=== PATIENT | male | born 1965 | race Caucasian/White ===

== ENCOUNTER 2024-10-02 18:05 | Inpatient (IN) ==
--- NOTE | 2024-10-02 18:25 | Emergency Department Note ---
History of Present Illness General Chief Complaint: Urinary Symptoms Stated Complaint: UTI, FEVER Time Seen by Provider: 10/02/24 18:13 History of Present Illness Provider Complaint: abdominal pain Onset (ago): 1 day(s) Location: diffuse Severity: moderate Maximum Pain Intensity: 8 Current Pain Intensity: 8 Quality: + stabbing and + sharp Relieved By: + nothing Exacerbated By: + other (Urinating) Context: + recent antibiotic use (Placed on Cipro yesterday by urology) and + recent surgery/procedure (Cystoscopy performed by urology Dr. Lerma 3 days ago); no foreign travel or no possible food poisoning Associated Symptoms: + nausea, + vomiting, + fever (Tmax 102.3 today), + chills and + dysuria; no diarrhea, no hematemesis, no melena, no hematuria, no headache, no chest pain and no breathing difficulty Patient also reports polyuria and urge to urinate Home Medications Medication Instructions Recorded Confirmed Type cyclobenzaprine 10 mg tablet 10 mg PO HS PRN Muscle Spasms 06/18/24 10/02/24 History simvastatin 10 mg tablet 10 mg PO QPM 06/18/24 10/02/24 History meloxicam 15 mg tablet 15 mg PO Q2D 09/02/24 10/02/24 History alfuzosin 10 mg tablet,extended 10 mg PO DAILY #30 tabs 09/03/24 10/02/24 Rx release 24 hr olmesartan 20 mg tablet (Benicar) 20 mg PO QPM #90 tabs 09/26/24 10/02/24 Rx finasteride 5 mg tablet 5 mg PO DAILY #30 tabs 09/30/24 10/02/24 Rx tadalafil 20 mg tablet 20 mg PO DAILY PRN sexual activity 09/30/24 10/02/24 Rx #30 tabs ciprofloxacin HCl 500 mg tablet 500 mg PO BID #14 tabs 10/02/24 10/02/24 Rx (Cipro) Allergies Allergy/AdvReac Type Severity Reaction Status Date / Time adhesive Allergy Intermediate Redness, Verified 09/15/24 10:30 Infection hydrochlorothiazide AdvReac Intermediate Muscle Verified 09/15/24 10:30 Cramping demerol AdvReac Mild "chills" Uncoded 09/15/24 10:30 Past Med/Surg History Problem List (Updated 10/02/24 @ 21:24 by Brian Streeter MD) JOSE (acute kidney injury) (Acute) Urinary tract infection (Acute) Colon cancer screening Dysuria History of renal cell cancer Inflamed seborrheic keratosis Overflow diarrhea (Acute) Skin lesion of face (Acute) Seborrheic keratoses (Acute) Stopped smoking with greater than 40 pack year history (Acute) Nocturia (Acute) Adult general medical exam (Acute) Migraines (Acute) Hyperlipidemia (Acute) Medical History Adverse effect of anesthesia "Slow to wake" as per patient Tinnitus, left ear COPD (chronic obstructive pulmonary disease) "Onset, never diagnosed" as per patient Migraines Hypercholesteremia HTN (hypertension) Hx of renal cell carcinoma 2012 - no chemo/xrt - surgery only Surgical History History of wisdom tooth extraction History of hip replacement, total Left Hx of shoulder surgery Left x3 arthroscopy Hx of appendectomy Hx of cholecystectomy Hx of spinal surgery x5 Lumbar - Hardware present History of nephrectomy, left Family History Grandmother (Paternal) Breast cancer Father Hypertension Prostate cancer GBM (glioblastoma multiforme) Mother Hypertension Pancreatic cancer Diabetes Sister Bladder cancer Grandmother (Maternal) Diabetes Brother Diabetes Denies family history of Ovarian cancer Heart disease Myocardial infarction Colorectal cancer Social History Smoking Status: Current every day smoker Tobacco Type: Cigarettes Age Started Using Tobacco: 14; packs per day: 1; Cigarettes Per Day: 1 1/2 pack; Second Hand Exposure: No; Do You Dip or Chew Tobacco: No; Hx Alcohol Use: Yes Hx Substance Use: No Preferred Language: Azeri Communication Ability: Effective Visual Impairment: Partially Limited Hearing Ability: Normal Child Care Provider Required: No Beliefs That Will Affect Care: None marital status: Current Living Situation: Spouse current occupational status: employed current occupation: [id number] How many Children do You have: 2 Feels Safe at Home: Yes Childhood Exposure to Second-Hand Smoke: Yes Diet: regular caffeine: Yes during the past year weight has: remained stable Dental Care, Regularly: No Physical Activity Frequency: 5-6 Times per Week Seatbelt Use: always Sunscreen Use: No Do you think of yourself as: straight/heterosexual Gender Identity: Male Assistive Devices: Glasses Physical Exam 2 Vital Signs: Vital Signs - 24 hr 10/02/24 18:09 10/02/24 18:13 10/02/24 18:13 Temperature 37.2 C Temperature Source Oral Pulse Rate 113 H Pulse Rate [Right Brachial] 101 H Pulse Rate from Sp O2 Sensor Pulse Rhythm [Righ t Brachial] Regular Pulse Strength [Ri ght Brachial] Normal Respiratory Rate 20 19 Respiratory Effort / Characteristics Non-Labored Non-Labored Respiratory Depth Normal Normal Respiratory Patter n Regular Blood Pressure 117/64 Blood Pressure [Ri ght Arm] 107/78 Blood Pressure Rena n 81 Blood Pressure Rena n [Right Arm] 87 Blood Pressure Pos ition [Right Arm] Lying Pulse Oximetry 95 95 94 Oxygen Delivery Me thod Room Air Room Air Room Air Sepsis Recent Feve r Within 48 Hours No Sepsis New/Unexpla ined Change in Men cierra Status No Sepsis Action Take n by Nursing No Action Required 10/02/24 18:32 10/02/24 18:45 10/02/24 19:00 Temperature Temperature Source Pulse Rate 105 H 98 H Pulse Rate [Right Brachial] Pulse Rate from Sp O2 Sensor 98 H Pulse Rhythm [Righ t Brachial] Pulse Strength [Ri ght Brachial] Respiratory Rate 16 Respiratory Effort / Characteristics Respiratory Depth Respiratory Patter n Blood Pressure 137/76 125/76 Blood Pressure [Ri ght Arm] Blood Pressure Rena n 89 89 Blood Pressure Rena n [Right Arm] Blood Pressure Pos ition [Right Arm] Pulse Oximetry 93 Oxygen Delivery Me thod Sepsis Recent Feve r Within 48 Hours Sepsis New/Unexpla ined Change in Men cierra Status Sepsis Action Take n by Nursing 10/02/24 19:00 10/02/24 19:15 10/02/24 19:30 Temperature Temperature Source Pulse Rate 95 H 96 H 92 H Pulse Rate [Right Brachial] Pulse Rate from Sp O2 Sensor 95 H 97 H 92 H Pulse Rhythm [Righ t Brachial] Pulse Strength [Ri ght Brachial] Respiratory Rate 22 21 20 Respiratory Effort / Characteristics Respiratory Depth Respiratory Patter n Blood Pressure 125/76 116/73 105/65 Blood Pressure [Ri ght Arm] Blood Pressure Rena n 89 81 71 Blood Pressure Rena n [Right Arm] Blood Pressure Pos ition [Right Arm] Pulse Oximetry 93 97 94 Oxygen Delivery Me thod Sepsis Recent Feve r Within 48 Hours Sepsis New/Unexpla ined Change in Men cierra Status Sepsis Action Take n by Nursing 10/02/24 19:45 10/02/24 20:00 10/02/24 20:15 Temperature Temperature Source Pulse Rate 94 H 95 H 90 Pulse Rate [Right Brachial] Pulse Rate from Sp O2 Sensor 85 94 H 90 Pulse Rhythm [Righ t Brachial] Pulse Strength [Ri ght Brachial] Respiratory Rate 20 25 H 16 Respiratory Effort / Characteristics Respiratory Depth Respiratory Patter n Blood Pressure 113/65 116/75 113/66 Blood Pressure [Ri ght Arm] Blood Pressure Rena n 74 88 77 Blood Pressure Rena n [Right Arm] Blood Pressure Pos ition [Right Arm] Pulse Oximetry 95 94 98 Oxygen Delivery Me thod Sepsis Recent Feve r Within 48 Hours Sepsis New/Unexpla ined Change in Men cierra Status Sepsis Action Take n by Nursing 10/02/24 20:26 10/02/24 20:30 10/02/24 21:00 Temperature Temperature Source Pulse Rate 99 H 99 H Pulse Rate [Right Brachial] 101 H Pulse Rate from Sp O2 Sensor 97 H Pulse Rhythm [Righ t Brachial] Regular Pulse Strength [Ri ght Brachial] Normal Respiratory Rate 22 21 Respiratory Effort / Characteristics Non-Labored Respiratory Depth Normal Respiratory Patter n Regular Blood Pressure 132/84 Blood Pressure [Ri ght Arm] 137/90 Blood Pressure Rena n 96 Blood Pressure Rena n [Right Arm] 105 Blood Pressure Pos ition [Right Arm] Lying Pulse Oximetry 95 99 Oxygen Delivery Me thod Room Air Sepsis Recent Feve r Within 48 Hours Sepsis New/Unexpla ined Change in Men cierra Status Sepsis Action Take n by Nursing Physical Exam: Physical Exam GENERAL: oriented to person, place, and time. appears well-developed and well- nourished. She does not appear distressed. HENT: Exam performed. -Head: Normocephalic and atraumatic. -Right Ear: External ear normal. No mastoid erythema -Left Ear: External ear normal. No mastoid erythema -Mouth/Throat: The oropharynx is clear and moist. No trismus in the jaw. No dental abscesses or uvula swelling. No oropharyngeal exudate or tonsillar abscesses. EYES: Conjunctivae and EOM are normal.Right eye exhibits no discharge. Left eye exhibits no discharge. No scleral icterus. NECK: Normal range of motion. Neck supple. No JVD present. No tracheal deviation and normal range of motion present. CV: Normal rate, regular rhythm, normal heart sounds and intact distal pulses. There is no peripheral edema. Palpable radial pulses bue. PULM/CHEST: Effort normal and breath sounds normal. No respiratory distress. No stridor. no wheezes.no rales. -Chest Wall: no tenderness to palpation ABD: The abdomen is soft.no distension. No mass is present. There is no tenderness to palpation of the suprapubic area. There is no rebound, no guarding, no Velasquez's sign and no tenderness at McBurney's point. Rovsig negative MUSC/SKEL: Normal range of motion. There is no peripheral edema, tenderness or deformity. NEURO: Motor and sensation grossly intact. SKIN: Skin is warm and dry. not diaphoretic. PSYCH: normal mood and affect. Behavior is normal. Judgment and thought content normal. Course Course 1812: The patient was evaluated in room C2. A complete history and physical exam was performed Cardiac monitoring: An order was placed for continuous cardiac monitoring. The monitor shows a rate of 110 with sinus tachycardia rhythm interpreted by me 1938: Vital signs stable. Labs show leukocytosis of 22. Lactic acid within normal limits. Procalcitonin is elevated. Urinalysis appears to be infected. Rocephin ordered for the patient. CT of the abdomen pelvis was conducted. I went over the patient's results with on-call urology Dr. Rachel. He states he does not see any abscess or obstruction. Patient's creatinine is elevated at 1.66 up from baseline of 1.4. After discussion with Dr. Rachel and him reviewing the patient's CT scan, we both feel that the patient should be admitted for IV hydration IV antibiotics given his JOSE and UTI. Patient is agreement will be admitted to the medicine team of the [facility]. Administered Medications Discontinued Medications Sodium Chloride (Nss) 1,000 mls @ 999 mls/hr IV .[id number] [facility], [facility]1983 Stop: 10/02/24 19:15 Last Infusion: 10/02/24 19:39 Dose: Infused Documented By: Admin: 10/02/24 18:30 Dose: 999 mls/hr Documented By: SANDRITA Ceftriaxone Sodium (Rocephin) 2,000 mg in 50 mls @ 100 mls/hr IV NOW STA Stop: 10/02/24 19:43 Last Infusion: 10/02/24 20:03 Dose: Infused Documented By: Admin: 10/02/24 19:29 Dose: 100 mls/hr Documented By: SABI Medical Decision Making Medical Records Attestation: I reviewed the patient's medical records. External medical records reviewed. Patient had a recent cystoscopy done on September 29, [address] Lerma. Laboratory Data Attestation: I reviewed the patient's lab results. 10/02/24 18:29 10/02/24 18:29 Lab Results 10/02/24 10/02/24 Range/Units 18:24 18:29 WBC 22.93 H (4.8-10.8) K/ul RBC 5.31 (4.70-6.10) M/uL Hgb 16.4 (14.0-18.0) g/dl Hct 47.3 (42.0-52.0) % MCV 89.1 (80.0-100.0) fL MCH 30.9 (25.0-34.0) pg MCHC 34.7 (32.0-36.0) g/dL RDW Std Deviation 44.0 (36.4-46.3) fL RDW Coeff of Cr 13.5 (11.5-14.5) % Plt Count 171 (130-400) K/uL MPV 10.0 (9.4-12.4) fL Immature Gran % (Auto) 1.0 % Neut % (Auto) 83.5 % Lymph % (Auto) 5.1 % Antelope % (Auto) 10.0 % Eos % (Auto) 0.1 % Baso % (Auto) 0.3 % Neut # (Auto) 19.16 H (1.40-6.50) K/uL Lymph # (Auto) 1.16 L (1.20-3.40) K/uL Antelope # (Auto) 2.30 H (0.11-0.59) K/uL Eos # (Auto) 0.03 (0.00-0.50) K/uL Baso # (Auto) 0.06 (0.00-0.20) K/uL Immature Gran # (Auto) 0.22 H (0.01-0.20) K/uL PT 11.9 (9.0-12.0) Seconds INR 1.1 (0.9-1.1) APTT 30 (21-31) Seconds PTT Ratio 1.1 Sodium 133 L (136-145) mmol/L Potassium 4.6 (3.5-5.1) mmol/L Chloride 102 (98-107) mmol/L Carbon Dioxide 22 (21-32) mmol/L Anion Gap 9 (3-11) BUN 23 (6-23) mg/dl Creatinine 1.66 H (0.6-1.4) mg/dl Est Cr Clr Drug Dosing 62.9 ml/min eGFR 46.90 BUN/Creatinine Ratio 13.9 (10-20) Glucose 123 H (70-99(Fasting)) mg/dl Lactate 1.3 (0.4-2.0) mmol/L Calcium 9.9 (8.6-10.3) mg/dl Magnesium 1.6 L (1.7-2.4) mg/dl Total Bilirubin 1.8 H (0.2-1.0) mg/dl Direct Bilirubin 0.5 H (0-0.2) mg/dl AST 12 L (13-39) U/L ALT 22 (7-52) U/L Alkaline Phosphatase 69 (34-104) U/L Troponin I High Sens 4.4 (0-20) pg/ml Total Protein 7.2 (6.0-8.3) gm/dl Albumin 4.1 (3.4-5.0) gm/dl Procalcitonin 0.73 H (0-0.5) ng/ml Urine Color [place] Urine Appearance Turbid A (Clear) Urine pH 6.5 (4.5-7.5) Ur Specific [place] 1.026 (1.000-1.030) Urine Protein 2+ H (Negative) Urine Glucose (UA) Negative (Negative) Urine Ketones Trace H (Negative) Urine Blood 3+ H (Negative) Urine Nitrite Positive A (Negative) Urine Bilirubin Negative (Negative) Urine Urobilinogen Negative (Negative) Ur Leukocyte Esterase 3+ H (Negative) Urine WBC (Auto) >50 H (0-5) /hpf Urine RBC (Auto) >20 H (0-2) /hpf U Hyaline Cast (Auto) 6-10 H (0-2) /lpf U Epithel Cells (Auto) 0-2 (0-2) /hpf Urine Bacteria (Auto) 3+ H (None Seen) Urine Comment Imaging Data Attestation: I personally reviewed and interpreted this imaging study as follows: My Impression: CT abdomen pelvis: No obstruction or abscess in the renal system. No free air. Radiologist's Impression: Chest X-Ray 10/02/24 18:13 Clinical History: Sepsis Technique: A frontal view of the chest was obtained Findings: There are no confluent pulmonary infiltrates. The heart size is within normal limits. No pleural effusion or pneumothorax is seen. There is no definite pulmonary nodule. No fracture is noted. No foreign body is seen Impression: No active disease Electronically signed by Kamar Joseph 10-02-2024 7:28 PM Abdomen/Pelvis CT 10/02/24 18:14 EXAMINATION: Abdomen and pelvis CT without CLINICAL HISTORY: Fever dysuria PRIORS: 09/20/2024 without report TECHNIQUE: Contiguous axial images were obtained through the abdomen and pelvis without the use of intravenous contrast. Sagittal and coronal reformations are supplied. FINDINGS: Mild hypoventilatory changes at the lung bases. Evaluation of solid organs is limited without the use of intravenous contrast. Fatty infiltration of the liver and hepatomegaly present. Spleen is 13 cm on the coronal images, upper limits of normal. Gallbladder surgically absent. The pancreas, adrenals, aorta and IVC are morphologically unremarkable. Stomach under distended with no inflammatory change. The left kidney is surgically absent. No adenopathy in the left retroperitoneum. Surgical clips are noted. The right kidney shows a low-attenuation round to oval lesion anteriorly measuring 3.2 cm with nonspecific perinephric stranding. No hydronephrosis, hydroureter or obstructing calculus. Beam hardening artifact from lumbar spine hardware diminishes image quality. Moderate atherosclerotic disease of the abdominal aorta. Urinary bladder is under distended. Allowing for beam hardening artifact, mild perivesicular inflammatory change noted, appearing in the interval. Focus of gas is present within the urinary bladder dependently, image 322, series 3. No pelvic sidewall adenopathy or free fluid. Moderate sigmoid colon diverticulosis with no inflammatory change on the current examination. No extraluminal gas or drainable fluid collection. Moderate amount of formed stool in the colon. Bowels unremarkable. Prostate is moderately enlarged. No free fluid in the pelvis. In bone windows, advanced degenerative change of the lumbar spine with postsurgical change noted. IMPRESSION: 1. Allowing for underdistention, circumferential urinary bladder wall thickening and new perivesicular inflammatory change is present, favoring Acute Cystitis given the stated clinical history. A single focus of gas is present in the urinary bladder lumen. Please correlate if there is been recent instrumentation which may have introduced gas. Otherwise, a gas producing organism could be considered if appropriate. 2. Prostamegaly. 3. Diverticulosis with no pericolonic inflammatory change on the current exam. 4. Spleen size is upper limits of normal. 5. Surgical absence of the left kidney. ACT 112: Positive. There are findings on this examination that require communication between the performing entity and the patient following Patient Test Result Information Act ([place] ACT 112) guidelines. Electronically signed by Zulma Koch 10-02-2024 7:39 PM ECG Data Attestation: I personally reviewed and interpreted this ECG as follows: Rate (beats per minute): 101 Rhythm: sinus tachycardia Findings: no ST depression, no ST elevation or no prolonged QT MDM Narrative 1813: The patient was evaluated in room C2. A complete history and physical exam was performed Cardiac monitoring: An order was placed for continuous cardiac monitoring. The monitor shows a rate of 110 with sinus tachycardia rhythm interpreted by me 1938: Vital signs stable. Labs show leukocytosis of 22. Lactic acid within normal limits. Procalcitonin is elevated. Urinalysis appears to be infected. Rocephin ordered for the patient. CT of the abdomen pelvis was conducted. I went over the patient's results with on-call urology Dr. Rachel. He states he does not see any abscess or obstruction. Patient's creatinine is elevated at 1.66 up from baseline of 1.4. After discussion with Dr. Rachel and him reviewing the patient's CT scan, we both feel that the patient should be admitted for IV hydration IV antibiotics given his JOSE and UTI. Patient is agreement will be admitted to the medicine team of the [facility]. Impression & Plan Urinary tract infection, JOSE (acute kidney injury) Discharge Plan Visit Data Chief Complaint: Urinary Symptoms Stated Complaint: UTI, FEVER ED Provider: Brian Streeter Discharge Problem: Urinary tract infection, JOSE (acute kidney injury) Patient Disposition: Admitted As Inpatient Condition: Fair Forms Stand Alone Forms: My [facility] Prescriptions Prescriptions: No Action olmesartan [Benicar] 20 mg tablet 20 mg PO QPM Qty: 90 1RF tadalafil 20 mg tablet 20 mg PO DAILY PRN (Reason: sexual activity) Qty: 30 3RF Rx Instructions: administer approximately 30min before sexual activity; do not use more than 1 dose per 24hrs ciprofloxacin HCl [Cipro] 500 mg tablet 500 mg PO BID Qty: 14 0RF simvastatin 10 mg tablet 10 mg PO QPM cyclobenzaprine 10 mg tablet 10 mg PO HS PRN (Reason: Muscle Spasms) alfuzosin 10 mg tablet extended release 24 hr 10 mg PO DAILY Qty: 30 11RF Rx Instructions: administer after the same meal each day finasteride 5 mg tablet 5 mg PO DAILY Qty: 30 11RF meloxicam 15 mg tablet 15 mg PO Q2D Referrals Referrals: Florinda Cutler CRNP [Primary Care Provider] -
[2024-10-02] MEDS: SODIUM CHLORIDE 0.9% 1,000 ML IV SCH (18:30)
[2024-10-02 18:51] LABS: Basophils # (auto) 0.06 K/uL (0.00-0.20); Basophils % (auto) 0.3 %; Eosinophils # (auto) 0.03 K/uL (0.00-0.50); Eosinophils % (auto) 0.1 %; Hematocrit (blood only) 47.3 % (42.0-52.0); Hemoglobin 16.4 g/dl (14.0-18.0); Immature Granulocytes # (auto) 0.22 K/uL (0.01-0.20); Lymphocytes # (auto) 1.16 K/uL (1.20-3.40); Lymphocytes % (auto) 5.1 %; Mean Corpuscular Hemoglobin 30.9 pg (25.0-34.0); Mean Corpuscular Hgb Conc 34.7 g/dL (32.0-36.0); Mean Corpuscular Volume 89.1 fL (80.0-100.0); Neutrophils # (auto) 19.16 K/uL (1.40-6.50); Neutrophils % (auto) 83.5 %; Platelet Count 171 K/uL (130-400); RDW Coefficient of Variation 13.5 % (11.5-14.5); Red Blood Count 5.31 M/uL (4.70-6.10); White Blood Count 22.93 K/ul (4.8-10.8)
[2024-10-02 19:06] LABS: Appearance Urine Turbid (Clear); Bacteria Urine Automated 3+ (None Seen); Bilirubin Urine Negative (Negative); Blood Urine 3+ (Negative); Color Urine Orange; Epithelial Cell Urine Auto 0-2 /hpf (0-2); Glucose Urine UA Negative (Negative); Ketones Urine Trace (Negative); Leukocyte Esterase Urine 3+ (Negative); Nitrite Urine Positive (Negative); Protein Urine 2+ (Negative); RBC Urine Automated >20 /hpf (0-2); Specific Gravity Urine 1.026 (1.000-1.030); Urobilinogen Urine Negative (Negative); WBC Urine Automated >50 /hpf (0-5); pH Urine 6.5 (4.5-7.5)
[2024-10-02 19:09] LABS: Albumin Level 4.1 gm/dl (3.4-5.0); BUN Creatinine Ratio 13.9 (10-20); Bilirubin Direct 0.5 mg/dl (0-0.2); Bilirubin,Total 1.8 mg/dl (0.2-1.0); Calcium 9.9 mg/dl (8.6-10.3); Creatinine Clr Calc Pharmacy 62.9 ml/min; Magnesium 1.6 mg/dl (1.7-2.4); Potassium 4.6 mmol/L (3.5-5.1); Total Protein 7.2 gm/dl (6.0-8.3)
[2024-10-02 19:15] LABS: Troponin I High Sensitivity 4.4 pg/ml (0-20)
[2024-10-02 19:21] LABS: INR 1.1 (0.9-1.1); Partial Thromboplastin Ratio 1.1; Partial Thromboplastin Time 30 Seconds (21-31); Prothrombin Time 11.9 Seconds (9.0-12.0)
--- NOTE | 2024-10-02 19:28 | XRay Report ---
Clinical History: Sepsis Technique: A frontal view of the chest was obtained Findings: There are no confluent pulmonary infiltrates. The heart size is within normal limits. No pleural effusion or pneumothorax is seen. There is no definite pulmonary nodule. No fracture is noted. No foreign body is seen Impression: No active disease Electronically signed by Kamar Joseph 10-02-2024 7:28 PM
[2024-10-02] MEDS: cefTRIAXone SODIUM 2,000 MG/50 ML BAG IV STA (19:29)
--- NOTE | 2024-10-02 19:40 | CT Scan Report ---
EXAMINATION: Abdomen and pelvis CT without CLINICAL HISTORY: Fever dysuria PRIORS: 09/20/2024 without report TECHNIQUE: Contiguous axial images were obtained through the abdomen and pelvis without the use of intravenous contrast. Sagittal and coronal reformations are supplied. FINDINGS: Mild hypoventilatory changes at the lung bases. Evaluation of solid organs is limited without the use of intravenous contrast. Fatty infiltration of the liver and hepatomegaly present. Spleen is 13 cm on the coronal images, upper limits of normal. Gallbladder surgically absent. The pancreas, adrenals, aorta and IVC are morphologically unremarkable. Stomach under distended with no inflammatory change. The left kidney is surgically absent. No adenopathy in the left retroperitoneum. Surgical clips are noted. The right kidney shows a low-attenuation round to oval lesion anteriorly measuring 3.2 cm with nonspecific perinephric stranding. No hydronephrosis, hydroureter or obstructing calculus. Beam hardening artifact from lumbar spine hardware diminishes image quality. Moderate atherosclerotic disease of the abdominal aorta. Urinary bladder is under distended. Allowing for beam hardening artifact, mild perivesicular inflammatory change noted, appearing in the interval. Focus of gas is present within the urinary bladder dependently, image 322, series 3. No pelvic sidewall adenopathy or free fluid. Moderate sigmoid colon diverticulosis with no inflammatory change on the current examination. No extraluminal gas or drainable fluid collection. Moderate amount of formed stool in the colon. Bowels unremarkable. Prostate is moderately enlarged. No free fluid in the pelvis. In bone windows, advanced degenerative change of the lumbar spine with postsurgical change noted. IMPRESSION: 1. Allowing for underdistention, circumferential urinary bladder wall thickening and new perivesicular inflammatory change is present, favoring Acute Cystitis given the stated clinical history. A single focus of gas is present in the urinary bladder lumen. Please correlate if there is been recent instrumentation which may have introduced gas. Otherwise, a gas producing organism could be considered if appropriate. 2. Prostamegaly. 3. Diverticulosis with no pericolonic inflammatory change on the current exam. 4. Spleen size is upper limits of normal. 5. Surgical absence of the left kidney. ACT 112: Positive. There are findings on this examination that require communication between the performing entity and the patient following Patient Test Result Information Act ([place] ACT 112) guidelines. Electronically signed by Zulma Koch 10-02-2024 7:39 PM
--- NOTE | 2024-10-02 20:41 | History & Physical Report ---
Date of Service October 02, 2024 Assessment & Plan (1) JOSE (acute kidney injury): (2) Urinary tract infection: (3) Sepsis: Plan Elliot Fernandez is a 58 Y O Male with PMH of RCC S/P Radical Nephrectomy, Hyperlipidemia, Migraine disorder presented to ER today with fever , chills and abdominal pain for 1 day admitted for management of Sepsis 2/2 to acute cystitis or possible prostatitis #Sepsis #Urinary Tract Infection(UTI) #Acute Cystitis #? Acute prostatitis -Fever, chills and abdominal discomfort for 1 day -Cystoscopy 3 days ago. Symptoms acutely after procedure raises suspicion for acute prostatitis -Denies flank pain -Urinalysis reveals positive nitrite and >50 WBCs -CT abdomen and pelvis reveals findings suggestive of acute cystitis and prostatomegaly -WBCs elevated to 22k. Plan -Ceftriaxone 2mg q24hr -Tylenol 1000mg TID PRN for fever -Nacl @100ml/hr upto 500ml -Follow up on Blood Culture and Urine Culture reports, CBC, CMP #JOSE/hypomagnesemia -Creatinine: 1.6 -Likely secondary to decreased water intake -Nacl @100ml/hr upto 500ml - Replace magnesium with 1 g magnesium sulfate IV #Elevated LFTS -Raised bilirubin with Normal liver enzymes -Patient denies right upper abdominal pain -Will monitor CMP tomorrow #LUTS: Continue Alfuzosin and Finasteride. Will replace Alfuzosin by Tamsulosin due to non availability of Alfuzosin #Hypertension: Hold Olmesartan in setting of JOSE #Hyperlipidemia: Continue Simvastatin 10mg daily DVT prophylaxis: SCDs Code: Full code Admit: Med/Surg History of Present Illness Chief Complaint: Fever, Primary Care Provider: CLAUDE Tidwell Elliot Fernandez is a 58 Y O Male with PMH of RCC S/P Radical Nephrectomy, Hyperlipidemia, Migraine disorder presented to ER today with fever, chills and abdominal discomfort started yesterday He had cystoscopy on 09/29 for LUTS like frequent urination, urgency . He presented today due to diffuse abdominal discomfort started yesterday, exacerbated on urinating and no any relieving factors. He has fever with MRT 102.3. He has nausea,vomiting, chills , dysuria, urinary urgency and increased frequency of urination. He had vomiting one episode containing food particles. However denies flank pain,hematuria, headache, chest pain, diarrhea and melena. This morning he texted his urologist and was started on ciprofloxacin. He started spiking fever to 102 this afternoon and decided to come to ED. He is non alcoholic . He smokes around 1 and half pack per day. Allergies Allergy/AdvReac Type Severity Reaction Status Date / Time adhesive Allergy Intermediate Redness, Verified 09/15/24 10:30 Infection hydrochlorothiazide AdvReac Intermediate Muscle Verified 09/15/24 10:30 Cramping meperidine [From Demerol] AdvReac Mild Chills Verified 10/02/24 23:44 Home Medications Medication Instructions Recorded Confirmed Type cyclobenzaprine 10 mg tablet 10 mg PO HS PRN Muscle Spasms 06/18/24 10/02/24 History simvastatin 10 mg tablet 10 mg PO QPM 06/18/24 10/02/24 History meloxicam 15 mg tablet 15 mg PO Q2D 09/02/24 10/02/24 History alfuzosin 10 mg tablet,extended 10 mg PO DAILY #30 tabs 09/03/24 10/02/24 Rx release 24 hr olmesartan 20 mg tablet (Benicar) 20 mg PO QPM #90 tabs 09/26/24 10/02/24 Rx finasteride 5 mg tablet 5 mg PO DAILY #30 tabs 09/30/24 10/02/24 Rx tadalafil 20 mg tablet 20 mg PO DAILY PRN sexual activity 09/30/24 10/02/24 Rx #30 tabs ciprofloxacin HCl 500 mg tablet 500 mg PO BID #14 tabs 10/02/24 10/02/24 Rx (Cipro) Past Med/Surg History Problem List (Updated 10/03/24 @ 02:46 by Rosalind Hines MD) Sepsis JOSE (acute kidney injury) (Acute) Urinary tract infection (Acute) Colon cancer screening Dysuria History of renal cell cancer Inflamed seborrheic keratosis Overflow diarrhea (Acute) Skin lesion of face (Acute) Seborrheic keratoses (Acute) Stopped smoking with greater than 40 pack year history (Acute) Nocturia (Acute) Adult general medical exam (Acute) Migraines (Acute) Hyperlipidemia (Acute) Medical History Adverse effect of anesthesia "Slow to wake" as per patient Tinnitus, left ear COPD (chronic obstructive pulmonary disease) "Onset, never diagnosed" as per patient Migraines Hypercholesteremia HTN (hypertension) Hx of renal cell carcinoma 2012 - no chemo/xrt - surgery only Surgical History History of wisdom tooth extraction History of hip replacement, total Left Hx of shoulder surgery Left x3 arthroscopy Hx of appendectomy Hx of cholecystectomy Hx of spinal surgery x5 Lumbar - Hardware present History of nephrectomy, left Family History Grandmother (Paternal) Breast cancer Father Hypertension Prostate cancer GBM (glioblastoma multiforme) Mother Hypertension Pancreatic cancer Diabetes Sister Bladder cancer Grandmother (Maternal) Diabetes Brother Diabetes Denies family history of Ovarian cancer Heart disease Myocardial infarction Colorectal cancer Social History Smoking Status: Current every day smoker Tobacco Type: Cigarettes Age Started Using Tobacco: 14; packs per day: 1; Cigarettes Per Day: 30; Second Hand Exposure: No; Do You Dip or Chew Tobacco: No; Tobacco Cessation Education Requested by Patient: No Hx Alcohol Use: Yes Alcohol type: hard liquor Hx Substance Use: No Preferred Language: Citizen Of [place] Communication Ability: Effective Visual Impairment: Partially Limited Hearing Ability: Normal 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 Beliefs That Will Affect Care: None marital status: Current Living Situation: Family current occupational status: employed current occupation: [employer] How many Children do You have: 2 Other Information That Helps Us Care for You: No Feels Safe at Home: Yes Safety Concerns: Feels Safe At This Time Childhood Exposure to Second-Hand Smoke: Yes Diet: regular caffeine: Yes during the past year weight has: remained stable Dental Care, Regularly: No Physical Activity Frequency: 5-6 Times per Week Seatbelt Use: always Sunscreen Use: No Do you think of yourself as: straight/heterosexual Gender Identity: Male Assistive Devices: Glasses Review of Systems Review of Systems: As per HPI Physical Exam Physical Exam: Constitutional: Well appearing, No acute distress, PILCCOD: Negative HEENT: Atraumatic, Normocephalic, No conjunctival injection CVS: S1 S2 no murmur, Regular Rhythm, no LE edema Respiratory: BL equal air entry with NVBS. No rhonchi, wheezes, or crackles. No increased work of breathing GI: Soft, Nondistended, Nontender, Normal Bowel sounds + MSK: No gross deformities noted Skin: Warm, Dry, No rashes Neuro: Alert, Oriented to TPP, No Focal deficit Psych: Mood and Affect congruent, Cooperative on exam Results & Data Results & Data Vital Signs (Past 12 Hours) Vital Signs Temp Pulse Pulse Resp BP BP Pulse Ox 10/02/24 20:00 95 H 25 H 116/75 94 10/02/24 19:45 94 H 20 113/65 95 10/02/24 19:30 92 H 20 105/65 94 10/02/24 19:15 96 H 21 116/73 97 10/02/24 19:00 95 H 22 125/76 93 10/02/24 19:00 125/76 10/02/24 18:45 98 H 16 137/76 93 10/02/24 18:32 105 H 10/02/24 18:13 101 H 19 107/78 94 10/02/24 18:13 95 10/02/24 18:09 37.2 C 113 H 20 117/64 95 O2 Del Method 10/02/24 20:00 10/02/24 19:45 10/02/24 19:30 10/02/24 19:15 10/02/24 19:00 10/02/24 19:00 10/02/24 18:45 10/02/24 18:32 10/02/24 18:13 Room Air 10/02/24 18:13 Room Air 10/02/24 18:09 Room Air Laboratory Results CBC, BMP, UA, LFTs reviewed Diagnostic Findings Chest X-Ray 10/02/24 18:13 Clinical History: Sepsis Technique: A frontal view of the chest was obtained Findings: There are no confluent pulmonary infiltrates. The heart size is within normal limits. No pleural effusion or pneumothorax is seen. There is no definite pulmonary nodule. No fracture is noted. No foreign body is seen Impression: No active disease Electronically signed by Kamar Joseph 10-02-2024 7:28 PM Abdomen/Pelvis CT 10/02/24 18:14 EXAMINATION: Abdomen and pelvis CT without CLINICAL HISTORY: Fever dysuria PRIORS: 09/20/2024 without report TECHNIQUE: Contiguous axial images were obtained through the abdomen and pelvis without the use of intravenous contrast. Sagittal and coronal reformations are supplied. FINDINGS: Mild hypoventilatory changes at the lung bases. Evaluation of solid organs is limited without the use of intravenous contrast. Fatty infiltration of the liver and hepatomegaly present. Spleen is 13 cm on the coronal images, upper limits of normal. Gallbladder surgically absent. The pancreas, adrenals, aorta and IVC are morphologically unremarkable. Stomach under distended with no inflammatory change. The left kidney is surgically absent. No adenopathy in the left retroperitoneum. Surgical clips are noted. The right kidney shows a low-attenuation round to oval lesion anteriorly measuring 3.2 cm with nonspecific perinephric stranding. No hydronephrosis, hydroureter or obstructing calculus. Beam hardening artifact from lumbar spine hardware diminishes image quality. Moderate atherosclerotic disease of the abdominal aorta. Urinary bladder is under distended. Allowing for beam hardening artifact, mild perivesicular inflammatory change noted, appearing in the interval. Focus of gas is present within the urinary bladder dependently, image 322, series 3. No pelvic sidewall adenopathy or free fluid. Moderate sigmoid colon diverticulosis with no inflammatory change on the current examination. No extraluminal gas or drainable fluid collection. Moderate amount of formed stool in the colon. Bowels unremarkable. Prostate is moderately enlarged. No free fluid in the pelvis. In bone windows, advanced degenerative change of the lumbar spine with postsurgical change noted. IMPRESSION: 1. Allowing for underdistention, circumferential urinary bladder wall thickening and new perivesicular inflammatory change is present, favoring Acute Cystitis given the stated clinical history. A single focus of gas is present in the urinary bladder lumen. Please correlate if there is been recent instrumentation which may have introduced gas. Otherwise, a gas producing organism could be considered if appropriate. 2. Prostamegaly. 3. Diverticulosis with no pericolonic inflammatory change on the current exam. 4. Spleen size is upper limits of normal. 5. Surgical absence of the left kidney. ACT 112: Positive. There are findings on this examination that require communication between the performing entity and the patient following Patient Test Result Information Act ([place] ACT 112) guidelines. Electronically signed by Zulma Koch 10-02-2024 7:39 PM ECG Additional Comments: ECG with sinus tachycardia, rate 101, no ischemic changes Code Status & VTE Plan Code Status Full code VTE Prophylaxis Plan VTE Prophylaxis will be ordered: Yes Supervising Physician Co-Signing Physician Notes I personally examined the patient and verified all monsivais points of history and exam, discussed case, and agree with decision making with Dr. Greer with the following additions/exceptions: S-this patient is a 58-year-old male with history of BPH with LUTS, chronic back pain, HTN, HLD, here with abdominal pain, urinary symptoms such as frequency and urgency, and fever several days after having cystoscopy for enlarged prostate. He reports voiding small amounts of urine at a time and incomplete emptying. He took 1 dose of Cipro prior to admission History and ROS otherwise reviewed as above O- Vitals Reviewed Gen: AAOx3, NAD HEENT: Anicteric sclerae, EOMI CV: RRR no mgr nl S1S2 Pulm: CTAB no wcr Abd: +BS soft NT ND no masses or hernias Ext: No edema Skin: No rashes, warm/dry Neuro: Full strength throughout A/P: 58-year-old male here with sepsis, UTI after cystoscopy, incomplete bladder emptying, JOSE and hypomagnesemia - Bladder scan every shift - Continue ceftriaxone follow urine cultures, blood cultures - Continue with IV fluid hydration, hold all losartan and meloxicam with JOSE Replace magnesium
[2024-10-02] MEDS: SODIUM CHLORIDE 0.9% 500 ML IV SCH (22:15)
[2024-10-02] MEDS ORDERED: ACETAMINOPHEN 500 MG TAB PO PRN (22:17)
[2024-10-02] MEDS: ACETAMINOPHEN 500 MG TAB PO STA (22:28)
[2024-10-02] MEDS ORDERED: MAGNESIUM HYDROXIDE SUSP 30 ML UDC PO PRN (23:12)
[2024-10-02] MEDS ORDERED: ONDANSETRON INJ 2 MG/ML 2 ML VIAL IV PRN (23:12)
[2024-10-02] MEDS ORDERED: MELATONIN 3 MG TAB PO PRN (23:12)
[2024-10-02] MEDS ORDERED: ALUMINUM/MAGNESIUM SUSP 30 ML UDC PO PRN (23:12)
[2024-10-02 23:44] VITALS: RESP 18
[2024-10-03] MEDS ORDERED: PNEUMOCOCCAL VACCINE (PCV20) 20-VAL CONJ-DIP CRM/PF 0.5 ML SYR IM ONE (00:02)
--- NOTE | 2024-10-03 02:51 | Billing Data ---
Date of Service October 02, 2024 Coding Level of Care Code 08914 INT INP/OBS CARE
[2024-10-03] MEDS: MAGNESIUM SULFATE / D5W 1 GM/100 ML BAG IV ONE (03:32)
--- NOTE | 2024-10-03 07:24 | Hospitalist Progress Note ---
Date of Service October 03, 2024 Assessment & Plan (1) Acute urinary retention: (2) Urinary tract infection: (3) JOSE (acute kidney injury): (4) Prostatic enlargement: (5) History of renal cell cancer: (6) Single kidney: Plan Elliot Fernandez is a 58yo M with PMH of RCC s/p Radical Nephrectomy of R kidney in 2012 with baseline creatinine of 1.4, BPH, HTN, hyperlipidemia, and migraine disorder presented to ER 10/02 with abdominal pain, fever with chills, and dec urine output for 1 day, admitted for management of sepsis 2/2 acute cystitis and JOSE likely due to acute urinary retention, PSA found to be 23.6. Requires continued admission for relief of urinary retention while obtaining IV abx and IV fluids. #Urinary Tract Infection(UTI) #Acute Cystitis / prostatitis -Fever, chills and abdominal discomfort for 1 day, cystoscopy on 09/29 showing only enlarged prostate, known BPH on alpha1 trent PSA: 23.6, likely acute prostatitis considering PSA was <3 just 3mos ago UA: 3+ bacteria, blood, leukocyte esterase; elevated WBCs to 22.9 WBCs elevated and slightly increased from prior: 22.9 -> 24.6 -CT abdomen and pelvis reveals findings suggestive of acute cystitis and prostatomegaly Continue ceftriaxone 2mg q24hr IV Likely needs to continue abx for prostatitis for total of 4 weeks Follow BCx, UCx for sensitivities and eventual switch to PO abx Tylenol 1000mg TID PRN for fever Nacl @100ml/hr up to 500ml Acute urinary retention: Likely 2/2 acute prostatitis as a complication of UTI and BPH hx- PSA of 24 on 10/02 but only 2.x in June 2024 Continue IV ceftriaxone as ordered at least until BCx and UCx result, continue total abx course 4wks Continue flomax and finasteride as prescribed Straight cath ordered as needed for now, consider switching to galindo if continues to require straight cath #JOSE, resolved -Likely 2/2 acute urinary retention due to acute prostatitis -Creatinine: 1.66 -> 1.38 Reported baseline Cr of 1.4 #Abnormal LFTS -Elevated bilirubin with Normal liver enzymes, improving -Patient denies right upper abdominal pain Chronic: LUTS: Continue Alfuzosin and Finasteride. Will replace Alfuzosin by Tamsulosin due to non availability of Alfuzosin Hypertension: Hold Olmesartan and meloxicam in setting of JOSE Hyperlipidemia: Continue Simvastatin 10mg daily DVT prophylaxos: Heparin 5000unit SC BID Code: Full code Admit: Med/Surg Admission and Anticipated Discharge Date Admission Date: October 02, 2024 Supervising Physician Co-Signing Physician Notes I personally examined the patient and verified all monsivais points of history and exam, discussed case, and agree with decision making with Dr Marie feeling better overall but still can't void - had to be straight cath'd. on directed questioning does feel rectal pressure with voiding vitals noted nad heent nc at mmm breathing unlabored no accessory muscles good effort skin no rashes no pallor or icterus neuro no focal deficits sepsis POA - UTI/prostatitis - ceftriaxone, follow clinical progress and culture BPH and urinary retention - hopefully all acute due to infection, follow, straight cath prn. if continues to have retention then may need galindo. discussed alpha trent - he notes that on multiple tries, tamsulosin given him fevers/aches, can tolerate rapaflo but apparently didn't help much (and is nonformulary here) - discussed risk/benefit of orthostasis and for now will give trial to prazosin. JOSE - obstructive - improving. for now management is the same as above DVT proph - ambulation Subjective Elliot was seen and evaluated at bedside this AM, feeling better than night prior but still unable to urinate much, still having lower abd pain. Reportedly had 400cc retained after TOV this AM. States he was started on ciprofloxacin yesterday 10/02, only given one dose before coming to [facility] ER, started on CTX. Understands that he is being treated for a UTI likely due to urinary retention in the setting of prostate enlargement. Denies nausea/vomiting, any further fever, body aches, or chills, headache, lightheadedness, or dizziness. Review of Systems Review of Systems: As per HPI Physical Exam Physical Exam: Gen: Well appearing, No acute distress HEENT: Atraumatic, Normocephalic, No conjunctival injection, EOM intact CV: RRR, +s1/s2, no m/r/g, no LE edema appreciated Respiratory: b/l equal air entry, clear to auscultation. No w/r/R, no increased work of breathing GI/Abd: normoactive BS, abdomen soft, mildly distended in suprapubic region, suprapubic tenderness to palpation, otherwise nontender to palpation, no rebound or guarding MSK: No gross deformities noted, 5/5 strength in all ext Skin: Warm, Dry, No rashes Neuro: no facial droop, speech intact Psych: Mood and Affect congruent, cooperative on exam Results & Data Results & Data Vital Signs (Past 12 Hours) Vital Signs Temp Pulse Pulse Pulse Resp BP BP 10/03/24 07:04 36.9 C 97 H 18 141/77 H 10/02/24 22:59 37.0 C 102 H 18 154/65 H 10/02/24 22:00 37.1 C 102 H 22 10/02/24 21:45 110 H 20 119/75 10/02/24 21:30 100 H 21 127/77 10/02/24 21:30 102 H 127/77 10/02/24 21:00 101 H 22 137/90 10/02/24 21:00 101 H 21 10/02/24 20:30 99 H 22 132/84 10/02/24 20:26 99 H 10/02/24 20:15 90 16 113/66 10/02/24 20:00 95 H 25 H 116/75 10/02/24 19:45 94 H 20 113/65 10/02/24 19:30 92 H 20 105/65 BP Pulse Ox O2 Del Method 10/03/24 07:04 95 Room Air 10/02/24 22:59 97 Room Air 10/02/24 22:00 134/81 96 Room Air 10/02/24 21:45 10/02/24 21:30 10/02/24 21:30 10/02/24 21:00 95 10/02/24 21:00 137/90 99 Room Air 10/02/24 20:30 95 10/02/24 20:26 10/02/24 20:15 98 10/02/24 20:00 94 10/02/24 19:45 95 10/02/24 19:30 94 Resident Activity Tracking Resident Involvement: Resident Care Provided Care Provided: Adult Hospital Medicine (2) Urinary tract infection Hematuria presence: with hematuria Urinary tract infection type: acute cystitis Qualified Code(s): N30.01 - Acute cystitis with hematuria
[2024-10-03 07:48] LABS: Hematocrit (blood only) 45.1 % (42.0-52.0); Hemoglobin 15.8 g/dl (14.0-18.0); Mean Corpuscular Hemoglobin 31.2 pg (25.0-34.0); Mean Corpuscular Volume 89.1 fL (80.0-100.0); Mean Platelet Volume 10.1 fL (9.4-12.4); Platelet Count 163 K/uL (130-400); RDW Coefficient of Variation 13.4 % (11.5-14.5); RDW Standard Deviation 43.8 fL (36.4-46.3); Red Blood Count 5.06 M/uL (4.70-6.10); White Blood Count 24.59 K/ul (4.8-10.8)
[2024-10-03 08:06] LABS: Albumin Globulin Ratio 1.4 (0.9-2); BUN Creatinine Ratio 13.8 (10-20); Bilirubin,Total 1.3 mg/dl (0.2-1.0); Calcium 9.2 mg/dl (8.6-10.3); Creatinine Clr Calc Pharmacy 75.9 ml/min; Globulin 2.9 gm/dl (2.5-4.0); Potassium 4.5 mmol/L (3.5-5.1); Total Protein 6.9 gm/dl (6.0-8.3)
[2024-10-03 08:24] LABS: Basophils # (auto) 0.06 K/uL (0.00-0.20); Basophils % (auto) 0.2 %; Eosinophils # (auto) 0.04 K/uL (0.00-0.50); Eosinophils % (auto) 0.2 %; Immature Granulocytes # (auto) 0.25 K/uL (0.01-0.20); Lymphocytes # (auto) 1.14 K/uL (1.20-3.40); Lymphocytes % (auto) 4.6 %; Monocytes % (auto) 9.4 %; Neutrophils % (auto) 84.6 %
[2024-10-03] MEDS: FINASTERIDE 5 MG TAB PO SCH (09:27)
[2024-10-03] MEDS: TAMSULOSIN HCL 0.4 MG CAP PO SCH (09:27)
--- NOTE | 2024-10-03 13:23 | Electrocardiogram Report ---
Test Reason : Blood Pressure : */* mmHG Vent. Rate : 101 BPM Atrial Rate : 101 BPM P-R Int : 124 ms QRS Dur : 86 ms QT Int : 314 ms P-R-T Axes : 58 -2 62 degrees QTcB Int : 407 ms Sinus tachycardia Otherwise normal ECG No previous ECGs available Confirmed by Trae Strickland ([id number]) on 10/03/2024 1:23:06 PM Referred By: REFERRED SELF Confirmed By: Trae Strickland
--- NOTE | 2024-10-03 17:01 | Billing Data ---
Date of Service October 03, 2024 Coding Level of Care Code 92800 SUB INP/OBS CARE MIN
[2024-10-03] MEDS: cefTRIAXone SODIUM 2,000 MG/50 ML BAG IV SCH (18:43)
[2024-10-03] MEDS: oxyBUTYnin chloride 5 MG TAB PO STA (19:52)
[2024-10-03] MEDS: PRAZOSIN HCL 1 MG CAP PO SCH (19:53)
[2024-10-03] MEDS: SIMVASTATIN 10 MG TAB PO SCH (21:22)
[2024-10-04 07:32] LABS: Hematocrit (blood only) 43.1 % (42.0-52.0); Hemoglobin 15.1 g/dl (14.0-18.0); Mean Corpuscular Hemoglobin 31.5 pg (25.0-34.0); Mean Corpuscular Volume 89.8 fL (80.0-100.0); Platelet Count 147 K/uL (130-400); RDW Coefficient of Variation 13.2 % (11.5-14.5); RDW Standard Deviation 43.8 fL (36.4-46.3); White Blood Count 14.17 K/ul (4.8-10.8)
[2024-10-04 07:46] LABS: BUN Creatinine Ratio 13.6 (10-20); Calcium 8.8 mg/dl (8.6-10.3); Creatinine Clr Calc Pharmacy 74.8 ml/min
[2024-10-04 07:58] VITALS: BP 121/74; PULSE 82; TEMP 98.1; O2SAT 97
--- NOTE | 2024-10-04 13:44 | Discharge Summary ---
Date of Service October 04, 2024 Admission HPI Per Admitting Provider Elliot Fernandez is a 58 Y O Male with PMH of RCC S/P Radical Nephrectomy, Hyperlipidemia, Migraine disorder presented to ER today with fever, chills and abdominal discomfort started yesterday He had cystoscopy on 09/29 for LUTS like frequent urination, urgency . He presented today due to diffuse abdominal discomfort started yesterday, exacerbated on urinating and no any relieving factors. He has fever with MRT 102.3. He has nausea,vomiting, chills , dysuria, urinary urgency and increased frequency of urination. He had vomiting one episode containing food particles. However denies flank pain,hematuria, headach e, chest pain, diarrhea and melena. This morning he texted his urologist and was started on ciprofloxacin. He started spiking fever to 102 this afternoon and decided to come to ED. He is non alcoholic . He smokes around 1 and half pack per day. Admission Exam Per Admitting Provider Constitutional: Well appearing, No acute distress, PILCCOD: Negative HEENT: Atraumatic, Normocephalic, No conjunctival injection CVS: S1 S2 no murmur, Regular Rhythm, no LE edema Respiratory: BL equal air entry with NVBS. No rhonchi, wheezes, or crackles. No increased work of breathing GI: Soft, Nondistended, Nontender, Normal Bowel sounds + MSK: No gross deformities noted Skin: Warm, Dry, No rashes Neuro: Alert, Oriented to TPP, No Focal deficit Psych: Mood and Affect congruent, Cooperative on exam Principal Diagnosis Prostatitis, urinary retention, JOSE, UTI Discharge Exam General: patient resting comfortably, NAD, non-toxic in appearance, answers questions appropriately. Skin: warm, dry, intact HEENT: NC/AT, anicteric sclera, conjunctiva without injection, moist mucus membranes. Heart: +S1/S2, regular, no m/r/g Lungs: equal air entry bilaterally, no rales/rhonchi/wheezes Abd: +BS, soft, NT/ND Ext: warm, no clubbing/cyanosis or edema Neuro: nonfocal, speech intact, no facial droop, moving all extremities. Discharge Data Allergies Allergy/AdvReac Type Severity Reaction Status Date / Time adhesive Allergy Intermediate Redness, Verified 09/15/24 10:30 Infection hydrochlorothiazide AdvReac Intermediate Muscle Verified 09/15/24 10:30 Cramping meperidine [From Demerol] AdvReac Mild Chills Verified 10/02/24 23:44 Consultations 10/02/24 19:42 ED Decision to Admit Stat Ordered Studies 10/02/24 18:14 CT abd pelvis wo con Stat Hospital Course (1) Acute urinary retention: (2) Urinary tract infection: (3) JOSE (acute kidney injury): (4) Prostatic enlargement: (5) History of renal cell cancer: (6) Single kidney: Jose Luis Fernandez is a 58yo M with PMH of RCC s/p Radical Nephrectomy of R kidney in 2012 with baseline creatinine of 1.4, BPH, HTN, hyperlipidemia, and migraine disorder presented to ER 10/02 with abdominal pain, fever with chills, and dec urine output for 1 day, admitted for management of sepsis 2/2 acute cystitis and JOSE likely due to acute urinary retention, PSA found to be 23.6. Requires continued admission for relief of urinary retention while obtaining IV abx and IV fluids. #Urinary Tract Infection(UTI) #Acute Cystitis / prostatitis -Fever, chills and abdominal discomfort for 1 day, cystoscopy on 09/29 showing only enlarged prostate, known BPH on alpha1 trent PSA: 23.6, likely acute prostatitis considering PSA was <3 just 3mos ago UA: 3+ bacteria, blood, leukocyte esterase; elevated WBCs to 22.9 WBCs elevated and slightly increased from prior: 22.9 -> 24.6 -CT abdomen and pelvis reveals findings suggestive of acute cystitis and prostatomegaly Continue ceftriaxone 2mg q24hr IV Will require 4 weeks of abx upon d/c, ciprofloxacin 500mg BID ordered; adverse effects discussed with patient. Acute urinary retention: Likely 2/2 acute prostatitis as a complication of UTI and BPH hx- PSA of 24 on 10/02 but only 2.x in June 2024 Continue IV ceftriaxone as ordered at least until BCx and UCx result, continue total abx course 4wks Continue flomax and finasteride as prescribed Straight cath ordered as needed for now, consider switching to galindo Patient d/c with Galindo, with re-evaluation at urology appointment next week #JOSE, resolved -Likely 2/2 acute urinary retention due to acute prostatitis -Creatinine: 1.66 -> 1.38 Reported baseline Cr of 1.4 #Abnormal LFTS -Elevated bilirubin with Normal liver enzymes, improving -Patient denies right upper abdominal pain Chronic: LUTS: Continue Alfuzosin and Finasteride. Will replace Alfuzosin by Tamsulosin due to non availability of Alfuzosin Hypertension: Hold Olmesartan and meloxicam in setting of JOSE Hyperlipidemia: Continue Simvastatin 10mg daily DVT prophylaxos: Heparin 5000unit SC BID Code: Full code Admit: Med/Surg Total Time Total Time Spent Total Time Spent (In Minutes): <30 Discharge Plan Discharge Items Patient Disposition: Home - Self-Care Reason For Visit: ABDOMINAL DISCOMFORT, FEVER, CHILLS Discharge Diagnosis: Prostatitis, UTI, JOSE Condition on Discharge: Fair Activity: Per Instructions section Non-emergency contact: Primary Care Provider and Urologist Call non-emergency contact if: your symptoms worsen and your pain is not controlled Follow-up/Referrals: Florinda Cutler CRNP [Primary Care Provider] - Diet: Regular Addtl Attending Provider Instructions: You were admitted to the hospital for acute prostatitis, UTI, urinary retention, and fevers. You were treated with IV antibiotics and these have been effective as seen by your decreasing white blood cell count, your improving symptoms and the resolution of your fever. You will need to continue your antibiotic course after discharge for a total course of approximately 4 weeks to help resolve this bout of prostatitis, your UTI symptoms will likely resolve much quicker than the resolution of the prostatitis. Yesterday, due to persistent urinary retention a straight cath was used to remove the remaining urine in your bladder. After this a Galindo was placed due to the worsened urinary retention likely due to the enlarged prostate in combination with your current UTI. When leaving the hospital the Galindo will stay in and it will be important to follow-up with urology in the next 1-2 weeks to determine Galindo removal. It will also be important to discuss follow-up steps regarding the prostate, imaging, and blood tests such as a PSA to run outpatient. In the hospital your labs were reviewed and your creatinine numbers that were increased have begin to normalize daily, and today was the first the day that your creatinine numbers were back in the normal range. Although initially febrile, you have remained afebrile and your vitals have remained stable towards the end of your hospital stay. Below you will find more information about your antibiotic regimen. A discharge summary will be sent to your primary care physician to ensure continuity of care. Please bring this discharge summary with you to your next office appointment so that your provider can review it at that time. Follow-up appointments: Make a follow-up appointment with your PCP within the next week. It is very important that you follow up with them shortly after discharge from the hospital. Please schedule a follow-up appointment with your urologist within one week of discharge. They should be reaching out in the next few days after the weekend, but please call their office if you do not hear from them. Medications: Your medication list has been reviewed and reconciled upon discharge to ensure accuracy and continuity of care. An updated list of all your medications is included with your hospital discharge paperwork. Please review this list closely, and make note of any changes. We sent a new medication called Ciprofloxacin to your pharmacy. Take Ciprofloxacin 500mg twice daily or approximately 1 tablet every 12 hours for the next 25 days. This 25 days plus the antibiotics you have received at the hospital will be a total 28 days or 4 week course of antibiotics for a complete course for prostatitis. Take your medications as instructed; do not skip a dose of your medicines. Make sure all of your doctors know every medicine you are taking (including [id number]-[id number] medicines, vitamins, and supplements). Call your primary care provider before taking any new medicines (including puyx-ovd-vaedxec medicines, vitamins, and supplements), because some of these may interact with your current medications, or may make your symptoms worse. Tell your primary care provider if you cannot afford your medications. CONTACT YOUR PRIMARY CARE PROVIDER if you experience any of the following: Difficulty following your treatment plan, or difficulty taking medications CALL 911 OR GO TO THE EMERGENCY DEPARTMENT if you experience any of the fol lowing: Sudden, severe abdominal pain or nausea/vomiting Severe chest pain, or chest pain that radiates (moves) to your jaw or arm Sudden, severe shortness of breath or difficulty breathing Thank you for allowing us to participate in your care. Pending Studies at Discharge: No Stand-Alone Forms: My Monitor[employer], Smoking Cessation Medications and DC Order Prescriptions: New ciprofloxacin HCl 500 mg tablet 500 mg PO Q12H Qty: 50 0RF Rx Instructions: Please take one tablet twice daily or approximately 12 hours apart for the next 25 days. Continued olmesartan [Benicar] 20 mg tablet 20 mg PO QPM Qty: 90 1RF tadalafil 20 mg tablet 20 mg PO DAILY PRN (Reason: sexual activity) Qty: 30 3RF Rx Instructions: administer approximately 30min before sexual activity; do not use more than 1 dose per 24hrs ciprofloxacin HCl [Cipro] 500 mg tablet 500 mg PO BID Qty: 14 0RF simvastatin 10 mg tablet 10 mg PO QPM cyclobenzaprine 10 mg tablet 10 mg PO HS PRN (Reason: Muscle Spasms) alfuzosin 10 mg tablet extended release 24 hr 10 mg PO DAILY Qty: 30 11RF Rx Instructions: administer after the same meal each day finasteride 5 mg tablet 5 mg PO DAILY Qty: 30 11RF meloxicam 15 mg tablet 15 mg PO Q2D Discharge Orders: Discharge Order (Routine); Ordered 10/04/24 Ordered By: Tien Collins/Other Patient Handouts: Indwelling Urinary Catheter Dc, Leg Bag Care Dc, ED Urinary Retention, Male Admission Data Admit Date/Time: 10/02/24 21:13 Attending Provider: Mp Carney Admit Provider: Nnamdi Greer Primary Care Provider: Florinda Cutler Other Providers: Rosalind Hines Other Interventions: Discharge Summary Assessment (RN) Last Done: 10/04/24 12:54 Supervising Physician Co-Signing Physician Notes I personally examined the patient and verified all monsivais points of history and exam, discussed case, and agree with decision making with Dr Watson feeling better overall, tolerating catheter well, comfortable with the idea of having it at home for now. vitals noted nad heent nc at mmm breathing unlabored no accessory muscles good effort skin no rashes no pallor or icterus neuro no focal deficits sepsis POA - UTI/prostatitis - ceftriaxone -> improved. home presumed 4wks of coverage - cipro (discussed risks/benefits of better prostate penetration but more ADRs vs cefpodoxime or similar "cleaner laboratory equipment" as far as ADRs but potentially less concentration in prostate - all in agreement with cipro). BPH and urinary retention - hopefully all acute due to infection, but for now needs galindo. home w cath in, voiding trial as outpt JOSE - obstructive - improved overall, back at baseline. BMP as outpt DVT proph - ambulation safe/stable for home, urology f/u ~1wk (attached chart with message to dr zepeda to help facilitate f/u) Resident Activity Tracking Resident Involvement: Resident Care Provided Care Provided: [facility]
[2024-10-05 13:39] LABS: A calco-baum cmplx NotReported Not Detected (NotDetected); Bact fragilis Not Reported Not Detected (NotDetected); Blood Culture Id Panel See PCR Comment (NotDetected); C auris Not Reported Not Detected (NotDetected); CTX-M Resistant Gene Not Detected (NotDetected); Calbicans Not Reported Not Detected (NotDetected); Candida glabrata Not Reported Not Detected (NotDetected); Candida krusei Not Reported Not Detected (NotDetected); Cneoformans/gatti Not Reported Not Detected (NotDetected); Cparapsilosis Not Reported Not Detected (NotDetected); Ctropicalis Not Reported Not Detected (NotDetected); E cloacae compx Not Reported Not Detected (NotDetected); Efaecalis Not Reported Not Detected (NotDetected); Efaecium Not Reported Not Detected (NotDetected); Enterobacterales DETECTED (NotDetected); Enterobacterales Not Reported DETECTED (NotDetected); Escherichia coli Not Reported DETECTED (NotDetected); H influenzae Not Reported Not Detected (NotDetected); IMP Resistant Gene Not Detected (NotDetected); K aerogenes Not Reported Not Detected (NotDetected); KPC Resistant Gene Not Detected (NotDetected); Koxytoca Not Reported Not Detected (NotDetected); Kpneumoniae grp Not Reported Not Detected (NotDetected); Lmonocyt Not Reported Not Detected (NotDetected); N meningitidis Not Reported Not Detected (NotDetected); NDM Resistant Gene Not Detected (NotDetected); OXA 48 Like Resistant Gene Not Detected (NotDetected); P aeruginosa Not Reported Not Detected (NotDetected); Proteus spp Not Reported Not Detected (NotDetected); Salmonella spp Not Reported Not Detected (NotDetected); Staph lugdunensis Not Reported Not Detected (NotDetected); Staph spp. Not Reported Not Detected (NotDetected); Staphaureus Not Reported Not Detected (NotDetected); Staphepi Not Reported Not Detected (NotDetected); Stenmaltophilia Not Reported Not Detected (NotDetected); Strep agal(GrpB) Not Reported Not Detected (NotDetected); Strep pneum Not Reported Not Detected (NotDetected); Strep pyog (GrpA) Not Reported Not Detected (NotDetected); Strep spp Not Reported Not Detected (NotDetected); VIM Resistant Gene Not Detected (NotDetected); mcr-1 Colistin Resistant Gene Not Detected (NotDetected)
== END 2024-10-04 14:26 | disposition home or self-care (01) | DRG 872 ==
LOC: ED 18:05 → 3N 21:13 → SUATTDRO 21:13 → 3N 22:35